=== PATIENT | female | born 1965 | race Caucasian/White ===

== ENCOUNTER → 2023-05-12 | Outpatient (CLI) | payer OTHER ==
[2023-05-12 15:33] LABS: HCT 43.2 % (37.2-46.3); HGB 13.6 d/dL (12.0-15.0); MCH 28.8 pg (27.0-32.0); MCHC 31.5 d/dL (32.0-37.0); MCV 91.3 FL (80.0-97.0); Mean Platelet Volume 9.8 FL (9.5-12.2); NRBC Per 100 WBC 0 X 10*3/uL (0.00-0.01); Platelet Count 273 X 10*3/uL (140-440); RBC 4.73 X 10*6/uL (4.10-5.20); RDW 12.9 % (11.5-14.5); WBC 6.24 X 10*3/uL (4.50-10.00)
[2023-05-12 17:02] LABS: ALT 33 U/L (8-44); AST 37 U/L (13-35); Albumin 4.5 d/dL (3.8-4.9); Alkaline Phosphatase 102 U/L (41-126); Blood Urea Nitrogen 16.2 mg/dL (9.0-27.0); Carbon Dioxide 27.1 mmol/L (21.6-31.8); Chloride 103 mmol/L (96-109); Chol/HDL Ratio 3.21 Ratio; Glucose 106 mg/dL (70-110); LDL Cholesterol,Calculated 135.8 mg/dL (0.0-131.0); Potassium 4.5 mmol/L (3.5-5.5); Sodium 144 mmol/L (135-145); T4, Free (Free Thyroxine) 1.19 ng/dL (0.80-1.80); Total Bilirubin 0.3 mg/dL (0.3-1.2); Total Protein 7.5 d/dL (6.2-8.2)
[2023-05-12 19:50] LABS: C-Peptide 4.02 ng/mL (0.81-3.85)
== END | disposition home or self-care (01) ==
LOC: LABWHC1 08:40
DX: I10 Essential (primary) hypertension (principal)
CPT/HCPCS: 36415; 80053; 80061; 83036; 84146; 84439; 84443; 84681; 85027

== ENCOUNTER → 2025-02-21 | Outpatient (CLI) | payer MEDICAID ==
[2025-02-21 21:20] LABS: T4, Free (Free Thyroxine) 1.16 ng/dL (0.80-1.80)
== END | disposition home or self-care (01) ==
LOC: LABWHC1 15:20
PROVIDERS: ATTEND Physician Assistant
DX: E66.01 Morbid (severe) obesity due to excess calories (principal)
CPT/HCPCS: 36415; 82671; 83036; 83525; 84146; 84403; 84439; 84443